=== PATIENT | male | born 1945 | race Caucasian/White ===

== ENCOUNTER → 2020-05-28 08:52 | Outpatient (BNVA) | payer MEDICARE, SELFPAY | PROVIDERS: Family Provider Family Medicine; PCP Family Medicine; Visit Provider Urology | DX: N52.9 Male erectile dysfunction, unspecified (principal); N52.31 Erectile dysfunction following radical prostatectomy | CPT/HCPCS: 81003 ==

== ENCOUNTER → 2021-05-28 08:31 | Outpatient (BNVA) | payer MEDICARE, SELFPAY | PROVIDERS: Family Provider Family Medicine; PCP Family Medicine; Visit Provider Urology | DX: C61 Malignant neoplasm of prostate (principal); N52.31 Erectile dysfunction following radical prostatectomy | CPT/HCPCS: 81003 ==

== ENCOUNTER → 2021-11-26 09:02 | Outpatient (BNVA) | payer MEDICARE, SELFPAY | PROVIDERS: Family Provider Family Medicine; PCP Family Medicine; Visit Provider Urology | DX: N52.31 Erectile dysfunction following radical prostatectomy (principal); Z85.46 Personal history of malignant neoplasm of prostate | CPT/HCPCS: 81003; 99213 ==

== ENCOUNTER → 2023-10-12 09:04 | Outpatient (BNVA) | payer MEDICARE, SELFPAY | PROVIDERS: Family Provider Family Medicine; PCP Family Medicine; Referring Provider Family Medicine; Visit Provider Surgery | DX: R19.5 Other fecal abnormalities (principal); Z86.010 Personal history of colon polyps | CPT/HCPCS: 99204 ==

== ENCOUNTER 2023-11-11 07:42 | Day surgery (SDC) | payer MEDICARE, SELFPAY ==
[2023-11-11] MEDS: sodium chloride 0.9% 1,000 ML 30 ML IV (08:27)
[2023-11-11 08:29] VITALS: BP 133/74; PULSE 58; RESP 18; TEMP 36.2; O2SAT 97
--- NOTE | 2023-11-11 08:35 | P.ANESASSM_ITS ---
Pre-Anesthetic Assessment Height/Weight: Height 1.88 m Weight 113.398 kg Temp Pulse Resp BP Pulse Ox O2 Del Method 97.1 F L 58 L 18 133/74 97 Room Air 11/11/23 08:29 11/11/23 08:29 11/11/23 08:29 11/11/23 08:29 11/11/23 08:29 11/11/23 08:29 Operation Date: 11/11/23 09:00 Proposed Procedures p Colonoscopy 08233, G0105, R19.5, Z86.010(Not Applicable) - Rajesh Boo DO Familial anesthetic complications: None Was Beta Mirlande taken within 24 hours: Yes Was Clonidine taken within 24 hours: N/A Last intake: Intake Last Liquid Date 11/10/23 Last Liquid Time 20:00 Last Solid Date 11/10/23 Last Solid Time 07:00 Social No alcohol and No tobacco Exam alert, oriented x 3, clear to auscultation bilaterally and regular rate & rhythm Airway Submandibular: within normal limits Cervical ROM: within normal limits Mallampati: Class III Dentition: full History/ROS No significant history except as noted and No significant complaints Pulmonary None reported CV/HEM Atrial Fibrillation, Arrythmia, Coronary Artery Disease and Hypertension CABGx3 2018, last saw dimensional inspector September 2023, no changes None reported Hepatic None reported GI None reported Metabolic Hyperlipidemia Musc/skel Osteoarthritis/DJD Neuropsych None reported Anesthetic Plan ASA status: 3 Anesthesia: Anesthesia Evaluation, General and MAC Other: Called patients provider for potassium levels. Potassium level was 4.8 in February of 2023. Risk of > 500 ml blood loss (7ml/kg in children): No Medications/Allergies Home Medications Medication Instructions Recorded Confirmed Last Taken Type apixaban 5 mg tablet (Eliquis) 5 mg PO BID 05/28/20 11/05/23 11/05/23 History aspirin 81 mg tablet,delayed 81 mg PO DAILY 05/28/20 11/05/23 11/05/23 History release (Adult Low Dose Aspirin) folic acid 1 mg tablet 1 mg PO DAILY 05/28/20 11/05/23 11/10/23 History hydrochlorothiazide 25 mg tablet 25 mg PO DAILY 05/28/20 11/05/23 11/10/23 History multivitamin,sm-payo-dzuvgnyv 1 tab PO DAILY 05/28/20 11/05/23 11/10/23 History (Complete Multivitamin tablet) olmesartan 40 mg tablet 40 mg PO DAILY 05/28/20 11/05/23 11/10/23 History omega-3 fatty acids 1,000 mg 1,000 mg PO BID 05/28/20 11/05/23 11/10/23 History capsule rosuvastatin 40 mg tablet 40 mg PO DAILY 05/28/20 11/05/23 11/10/23 History sotalol 160 mg tablet 160 mg PO DAILY 05/28/20 11/05/23 11/11/23 History potassium chloride 20 mEq 20 meq PO BID 11/05/23 11/05/23 11/10/23 History tablet,extended release Allergies Allergy/AdvReac Type Severity Reaction Status Date / Time morphine Allergy Unknown ALGY-Hives Verified 10/12/23 09:08 Penicillins Allergy Unknown Unknown Verified 11/26/21 09:11 Current Medications Generic Name Dose Route Start Last Admin Trade Name Freq PRN Reason Stop Dose Admin Sodium Chloride 1,000 mls @ 30 mls/hr 11/11/23 08:00 11/11/23 08:27 Sodium Chloride 0.9% IV 11/12/23 07:59 30 mls/hr .Q24H [facility] Administration PFSH Anesthesia Medical History HTN (hypertension) Afib Erectile dysfunction History of malignant neoplasm of prostate Surgical History History of back surgery Hx of cholecystectomy Hx of radical prostatectomy History of knee replacement Hx of heart artery stent Family History Mother Stroke Father Stroke Social History Smoking and tobacco/nicotine status: never used tobacco/nicotine Alcohol intake: never Marital status: Current occupational status: employed Data Anesthesia Cardiac Studies: No Data to Display
--- NOTE | 2023-11-11 08:54 | PM.HP ---
Providers/Chief Complaint Primary Care Provider: Yuli Patton MD Chief Complaint: R19.5, Z86.010 History of Present Illness Karan Tenorio is a 78 year old male Review of Systems General: Reports: 10 or more systems reviewed and unremarkable except in HPI and below Medications/Allergies Home Medications Medication Instructions Recorded Confirmed Last Taken Type apixaban 5 mg tablet (Eliquis) 5 mg PO BID 05/28/20 11/05/23 11/05/23 History aspirin 81 mg tablet,delayed 81 mg PO DAILY 05/28/20 11/05/23 11/05/23 History release (Adult Low Dose Aspirin) folic acid 1 mg tablet 1 mg PO DAILY 05/28/20 11/05/23 11/10/23 History hydrochlorothiazide 25 mg tablet 25 mg PO DAILY 05/28/20 11/05/23 11/10/23 History multivitamin,is-iwwy-qiatswvx 1 tab PO DAILY 05/28/20 11/05/23 11/10/23 History (Complete Multivitamin tablet) olmesartan 40 mg tablet 40 mg PO DAILY 05/28/20 11/05/23 11/10/23 History omega-3 fatty acids 1,000 mg 1,000 mg PO BID 05/28/20 11/05/23 11/10/23 History capsule rosuvastatin 40 mg tablet 40 mg PO DAILY 05/28/20 11/05/23 11/10/23 History sotalol 160 mg tablet 160 mg PO DAILY 05/28/20 11/05/23 11/11/23 History potassium chloride 20 mEq 20 meq PO BID 11/05/23 11/05/23 11/10/23 History tablet,extended release Allergies Allergy/AdvReac Type Severity Reaction Status Date / Time morphine Allergy Unknown ALGY-Hives Verified 10/12/23 09:08 Penicillins Allergy Unknown Unknown Verified 11/26/21 09:11 PFSH Acute PFSH: Medical History HTN (hypertension) Afib Erectile dysfunction History of malignant neoplasm of prostate Surgical History History of back surgery Hx of cholecystectomy Hx of radical prostatectomy History of knee replacement Hx of heart artery stent Family History Mother Stroke Father Stroke Social History Smoking and tobacco/nicotine status: never used tobacco/nicotine Alcohol intake: never Marital status: Current occupational status: employed Vitals/I&O/Wt Last Vital Signs Temp 97.1 F L 11/11/23 08:29 Pulse 58 L 11/11/23 08:29 Resp 18 11/11/23 08:29 BP 133/74 11/11/23 08:29 Pulse Ox 97 11/11/23 08:29 O2 Del Method Room Air 11/11/23 08:29 Weight last 48 hrs Weight 250 lb A&P Assessment and plan (1) Positive colorectal cancer screening using Cologuard test: (2) History of colon polyps: Plan Colonoscopy Attestations Medical Necessity Statement*: Home Coding Level of Care Code Acute Code for Chg Fwd Diagnoses Positive colorectal cancer screening using Cologuard test R19.5 History of colon polyps Z86.010
[2023-11-11 09:21] VITALS: BP 104/60; PULSE 54; RESP 16; TEMP 36.2; O2SAT 95
[2023-11-11 09:40] VITALS: BP 106/69; PULSE 50; RESP 18; O2SAT 95
--- NOTE | 2023-11-11 09:55 | ANE.PACU2 ---
Inpatient post-anesthesia follow up: Airway intact: Yes Vital signs: Temperature 97.1 F Pulse Rate 50 Respiratory Rate 18 Blood Pressure 106/69 Pulse Oximetry 95 Oxygen Delivery Me thod Room Air Oxygen Flow Rate Fraction of Inspir ed Oxygen Hydration adequate: Yes Nausea and vomiting: No Pain level: 1 Mental status: Baseline
== END 2023-11-11 09:57 | disposition home or self-care (01) ==
PROVIDERS: Family Provider Family Medicine; PCP Family Medicine; Visit Provider Surgery
PROC: 0DJD8ZZ Inspection of Lower Intestinal Tract, Via Natural or Artificial Opening Endoscopic (ICD-10-PCS; CPT 45378; principal; 2023-11-11 09:00)
DX: R19.5 Other fecal abnormalities (principal); Z86.010 Personal history of colon polyps; K64.8 Other hemorrhoids; I48.91 Unspecified atrial fibrillation; I25.10 Atherosclerotic heart disease of native coronary artery without angina pectoris; I10 Essential (primary) hypertension; Z95.1 Presence of aortocoronary bypass graft; E78.5 Hyperlipidemia, unspecified; M19.90 Unspecified osteoarthritis, unspecified site; Z79.82 Long term (current) use of aspirin; Z85.46 Personal history of malignant neoplasm of prostate
CPT/HCPCS: 45378; J2704; J7030

== ENCOUNTER → 2023-11-30 09:29 | Outpatient (BNVA) | payer MEDICARE, SELFPAY | PROVIDERS: Family Provider Family Medicine; PCP Family Medicine; Visit Provider Surgery | DX: Z09 Encounter for follow-up examination after completed treatment for conditions other than malignant neoplasm (principal); K64.8 Other hemorrhoids | CPT/HCPCS: 99214 ==

== ENCOUNTER → 2024-02-25 14:43 | Outpatient (BNVA) | payer MEDICARE, SELFPAY | PROVIDERS: Family Provider Family Medicine; PCP Family Medicine; Referring Provider Family Medicine; Visit Provider Dermatology | DX: D48.5 Neoplasm of uncertain behavior of skin (principal); L91.8 Other hypertrophic disorders of the skin; L60.3 Nail dystrophy; L82.1 Other seborrheic keratosis; S60.032A Contusion of left middle finger without damage to nail, initial encounter; X58.XXXA Exposure to other specified factors, initial encounter; L81.4 Other melanin hyperpigmentation; D22.71 Melanocytic nevi of right lower limb, including hip | CPT/HCPCS: 11102; 11200; 99203 ==

== ENCOUNTER → 2025-02-06 10:32 | Outpatient (BNVA) | payer MEDICARE, SELFPAY | PROVIDERS: PCP Family Medicine; Visit Provider Family Medicine | DX: Z00.00 Encounter for general adult medical examination without abnormal findings (principal); E78.00 Pure hypercholesterolemia, unspecified; I10 Essential (primary) hypertension; I25.10 Atherosclerotic heart disease of native coronary artery without angina pectoris; I48.0 Paroxysmal atrial fibrillation; E87.6 Hypokalemia; Z12.5 Encounter for screening for malignant neoplasm of prostate | CPT/HCPCS: 80053; 80061; 84443; 85025; G0103 ==

== ENCOUNTER → 2025-02-15 13:15 | Outpatient (BNVA) | payer MEDICARE, SELFPAY | PROVIDERS: PCP Family Medicine; Visit Provider Nurse Practitioner Family | DX: L82.1 Other seborrheic keratosis (principal); L81.4 Other melanin hyperpigmentation; D18.01 Hemangioma of skin and subcutaneous tissue; L60.3 Nail dystrophy; L57.0 Actinic keratosis | CPT/HCPCS: 17000; 99213 ==